=== PATIENT | female | born 1990 | race Caucasian/White ===

== ENCOUNTER → 2016-06-15 | Outpatient (CLI) | payer OTHER ==
[2016-06-15 11:51] LABS: CH 29.4; CHCM 33.9; HDW 2.83; HGB 12.8 gm/dL (11.4-16.0); MCH 28.5 pg (25.0-35.0); MCHC 32.8 g/dL (31.0-37.0); MCV 86.8 fL (80.0-100.0); RBC 4.49 m/uL (3.80-5.40); RDW 13.1 % (11.5-15.5)
[2016-06-15 12:02] LABS: Glucose 91 mg/dL (74-99); Non-African American GFR(MDRD) >60 (>60 ml/min/1.73 sqM)
--- NOTE | 2016-06-15 12:13 | US ---
EXAMINATION TYPE: US OB <= 14 wk fetus DATE OF EXAM: 06/15/2016 11:31 AM COMPARISON: NONE CLINICAL HISTORY: 25-year-old female with O46.91 Bleeding. The patient states spotting last week. Date of LMP: unknown EXAM PERFORMED: Transabdominal scanning. FINDINGS: EXAM MEASUREMENTS: GESTATIONAL AGE / DATING Physician Established: (12 weeks/4 days) EDC: 12/24/2016 Dates by LMP: unknown Dates by First Scan: this is first scan here Dates by Current Scan for: (13 weeks/5 days) SD = 2.74 EDC: 12/16/2016 MATERNAL ANATOMY Uterus: 15.5 x 6.2 x 9.8 cm Right Ovary: not identified on today's scan Left Ovary: not identified on today's scan Post CDS / Adnexa: wnl Presence of free fluid: none GESTATION / SURVEY CRL: 7.5 cm (13 weeks/5 days) Yolk Sac (normal less than 6mm): not seen Heart Rate: 152 bpm Rhythm: Normal IUP: Viable IUP TECHNOLOGIST NOTES: viable IUP , morbidly obese patient. IMPRESSION: 1. Single live intrauterine with established gestational age of 12 weeks 4 days. Current me asurements are larger (13 weeks 5 days) by crown-rump length placing the gestation at 2.74 standard d eviations above the mean. 2. Follow-up can be considered to assess for appropriate interval growth. Otherwise, complete s urvey recommended at 18-20 weeks.
[2016-06-15 12:32] LABS: Hepatitis B Surface Ag Index 0.06
[2016-06-16 07:31] LABS: HIV-1/HIV-2 Ab Screen NONREAC (NON REAC)
== END | disposition home or self-care (01) ==
LOC: RADUSWWP 11:04
PROVIDERS: ATTEND Obstetrics & Gynecology
DX: O46.91 Antepartum hemorrhage, unspecified, first trimester (principal); O26.811 Pregnancy related exhaustion and fatigue, first trimester; Z3A.12 12 weeks gestation of pregnancy
CPT/HCPCS: 36415; 76801; 82565; 82947; 85027; 86762; 86780; 86850; 86900; 86901; 87340; 87389

== ENCOUNTER → 2016-08-04 | Outpatient (CLI) | payer OTHER ==
--- NOTE | 2016-07-19 10:07 | US ---
EXAMINATION TYPE: US OB anatomy transabd DATE OF EXAM: 07/19/2016 8:36 AM COMPARISON: on PACS June 15, 2016 first trimester ultrasound. HISTORY: Anatomy, large for dates. TECHNIQUE: Transabdominal (TA) EXAM MEASUREMENTS: GESTATIONAL AGE / DATING Physician Established: (18 weeks/4 days) EDC: 12/16/2016 Dates by Current Scan: (18 weeks/1 days) EDC: 12/19/2016 SURVEY IUP: Single PLACENTA: Posterior PREVIA: No previa RADHIKA: 14.4 cm Normal CERVICAL LENGTH (transabdominal: norm > 3.0cm): 4.0 cm BIOMETRY PRESENTATION: Breech LIE: Longitudinal BPD: 4.0 cm 18 weeks / 0 days HC: 15.1 cm 18 weeks / 1 days AC: 13.2 cm 18 weeks / 5 days FL: 2.5 cm 17 weeks / 4 days ESTIMATED WEIGHT IN GRAMS: 226.5 grams ESTIMATED WEIGHT IN LBS/OZS: 0 lbs. 8 oz. WEIGHT PERCENTAGE BASED ON ESTABLISHED DATE: 22.7 % HC/AC: 1.1 FL/AC: 18.9 HEART RATE: 146 bpm RHYTHM: Normal ANATOMY SEEN (within normal limits): Midline Falx Cavus Septi Pellucidi Stomach Situs Bladder Three Vessel Cord Longitudinal Spine Transverse Spine Arms (bilateral) Legs (bilateral) ANATOMY SEEN (does not appear within normal limits): ANATOMY NOT SEEN: * Lateral Vent (< 1 cm) cm * Cisterna Magna (< 1.1 cm) cm * Nuchal Fold (< 0.6 cm) cm * Cerebellum (varies with age) cm Choroid Plexus (bilateral) Four Chamber Heart Outflow tracts: LVOT/RVOT Nose / Lips Diaphragm Kidneys (bilateral) Cord Insert MATERNAL WALL MEASUREMENT: 6.0 cm from skin to anterior uterine wall (if exam limited due to body sauceda bitus). TECHNOLOGIST IMPRESSION: Suboptimal exam due to maternal body habitus-- Limited visualization of fet us. Live single IUP measuring 18 weeks 1 day. OB callback appointment is made for two weeks. Exam is noted suboptimal due to maternal large body habitus per technologist. Single live intrauterin e gestation is redemonstrated. A breech presentation to fetus is currently seen. Slightly low-lying p lacenta is noted. There is no ultrasound evidence for placenta previa. Amniotic fluid index is within normal limits. biometry measurements are within normal limits. Detailed anatomical survey is m arkedly suboptimal with incomplete visualization of above structures noted during real-time scanning. Still images saved also show poor visualization of bilateral extremities, spine and 2 views, and 3 v essel cord. IMPRESSION: As above, suboptimal anatomical survey.
--- NOTE | 2016-08-04 12:10 | US ---
EXAMINATION TYPE: US OB Call Back DATE OF EXAM: 08/04/2016 11:35 AM COMPARISON: OB CALL BACK CLINICAL HISTORY: Large for Dates O36.62x0. GESTATIONAL AGE / DATING Dates by Initial Survey Scan: (20 weeks/1 days) EDC: 12/19/2016 HEART RATE: 142 bpm RHYTHM: Normal ANATOMY SEEN (second anatomic survey look): Lateral Vent (< 1 cm):0.7 Cisterna Magna (< 1.1 cm): 0.5CM Cerebellum: 1.9 CM 4 chamber heart Cord insertion 3 vessel cord Femur length 3.5 cm Abdominal circumference 14.8 cm Longitudinal spine Biparietal diameter 4.7 cm Head circumference 17.2 cm ANATOMY STILL NOT SEEN (requiring an additional callback appt): Outflow tracts:? LVOT/RVOT, nose and lips, diaphragm, kidneys MATERNAL WALL MEASUREMENT: 11 cm from skin to anterior uterine wall (if exam limited due to body hab itus). IMPRESSION: Exam is limited by patient body habitus. There is a low-lying placenta. Single viable int rauterine corresponding to ultrasound age 20 weeks 4 days with estimated date of delivery 14 December 2016
== END | disposition home or self-care (01) ==
LOC: RADUSWWP 07-19 07:36
PROVIDERS: ATTEND Obstetrics & Gynecology
DX: O36.62X0 Maternal care for excessive fetal growth, second trimester, not applicable or unspecified (principal); Z3A.18 18 weeks gestation of pregnancy
CPT/HCPCS: 76811

== ENCOUNTER → 2016-09-21 | Outpatient (CLI) | payer OTHER ==
[2016-09-21 15:10] LABS: CH 29.7; CHCM 33.4; HCT 35.4 % (34.0-46.0); HDW 3.18; HGB 11.4 gm/dL (11.4-16.0); MCH 28.8 pg (25.0-35.0); MCHC 32.3 g/dL (31.0-37.0); MCV 89.4 fL (80.0-100.0); Mean Platelet Volume 6.7; RBC 3.96 m/uL (3.80-5.40); RDW 13.4 % (11.5-15.5); WBC 9.1 k/uL (3.8-10.6)
== END | disposition home or self-care (01) ==
LOC: LABWHC1 13:31
PROVIDERS: ATTEND Obstetrics & Gynecology
DX: Z34.82 Encounter for supervision of other normal pregnancy, second trimester (principal)
CPT/HCPCS: 36415; 82950; 85027

== ENCOUNTER 2016-10-01 11:49 | Outpatient (CLI) | payer OTHER ==
[2016-10-01 12:31] VITALS: BP 119/68; PULSE 99; RESP 18; TEMP 98
--- NOTE | 2016-10-02 06:23 | P.MSEPDOC ---
Presenting Problems - Arrival Data Date of Arrival on Unit: 10/01/16 Time of Arrival on Unit: 11:50 Mode of Transport: Wheelchair - Complaint OB-Reason for Admission/Chief Complaint: Acute Nausea/Vomiting Medical History - Information : 2 Para: 0 Term: 0 : 0 Abortions: Spontaneous or Elective: 0 Number of Living Children: 1 - Gestational Age Expected Date of Delivery: 12/16/16 Gestational Age by GENEVA (wks/days): 29 Weeks and 2 Days - History Complications: Prior Review of Systems - Review of Systems Constitutional: No problems Breast: No problems ENT: No problems Cardiovascular: No problems Respiratory: No problems Gastrointestinal: No problems Genitourinary: No problems Musculoskeletal: No problems Neurological: No problems Skin: No problems Vital Signs - Temperature Temperature: 98.0 F Temperature Source: Oral - Pulse Right Brachial Pulse Rate: 99 Pulse Assessment Method: Automatic Cuff - Respirations Respiratory Rate: 18 Oxygen Delivery Method: Room Air - Blood Pressure Right Arm Blood Pressure: 119/68 Blood Pressure Mean: 85 Blood Pressure Source: Automatic Cuff Medical Screen Scoring (Pre) - Maternal Vital Signs Maternal Temperature: N/A Signs of Preeclampsia: N/A Maternal Respirations: N/A - Maternal Trauma Maternal Trauma: N/A - Assessment Baseline FHR: 140 Heart Rate - NICHD Category: Category I (Normal) = 0 NST: Reactive Position: N/A - Total Score Total Score (Pre): 0 - Level of Risk Level of Risk: Low (0-5) Physician Notification (Pre) - Physician Notified Physician Notified Date: 10/01/16 Physician Notified Time: 12:30 Physician/Practitioner Notifed:: charles Spoke With: charles Ventura Order Received: Yes Disposition - Disposition OB Disposition: Discharge to home Discharge Date: 10/01/16 Discharge Time: 13:23 I agree with the RN Medical Screening Exam: Yes Risk & Benefit of care provided described in d/c instruction: Yes Diagnosis: 29 WEEKS GESTATION OF
== END 2016-10-01 13:28 | disposition home or self-care (01) ==
LOC: FBPOP 11:49
PROVIDERS: ATTEND Obstetrics & Gynecology
DX: O21.2 Late vomiting of pregnancy (principal); Z3A.29 29 weeks gestation of pregnancy
CPT/HCPCS: 59025; G0463; 99213

== ENCOUNTER 2016-10-20 16:28 | Outpatient (CLI) | payer OTHER ==
[2016-10-20 17:43] VITALS: PULSE 87; RESP 18; TEMP 98.5
[2016-10-20 17:50] LABS: Appearance,Urine Cloudy (Clear); Bacteria,Urine Rare /hpf; Bilirubin,Urine Negative (Negative); Glucose,Urine (UA) Negative (Negative); Ketones,Urine 1+ (Negative); Leukocyte Esterase,Urine Negative (Negative); Mucus,Urine Occasional /hpf; Nitrite,Urine Negative (Negative); PH, Urine 6.5 (5.0-8.0); Particle Count 7559; Protein,Urine 1+ (Negative); RBC,Urine >182 /hpf (0-5); Specific Gravity,Urine 1.021 (1.001-1.035); Squamous Epithelial Cell,Urine 3 /hpf (0-4); UA Billing (MACRO vs. MICRO) MICRO; Urobilinogen,Urine <2.0 mg/dL (<2.0)
[2016-10-20 19:09] VITALS: BP 123/69
--- NOTE | 2016-10-21 08:06 | P.MSEPDOC ---
Presenting Problems - Arrival Data Date of Arrival on Unit: 10/20/16 Time of Arrival on Unit: 16:25 Mode of Transport: Wheelchair - Complaint OB-Reason for Admission/Chief Complaint: Pain Comment: left flank Medical History - Information : 2 Para: 0 Term: 0 : 0 Abortions: Spontaneous or Elective: 0 Number of Living Children: 1 - Gestational Age Expected Date of Delivery: 12/16/16 Gestational Age by GENEVA (wks/days): 32 Weeks and 0 Days - History Complications: Other Comment: left flank pain onset 1330 troday. emesis x 1, at 1500 Review of Systems - Review of Systems Constitutional: No problems Breast: No problems ENT: No problems Cardiovascular: No problems Respiratory: No problems Gastrointestinal: No problems Genitourinary: No problems Musculoskeletal: No problems Neurological: No problems Skin: No problems Comment: left flank pain radiating to left side Vital Signs - Temperature Temperature: 98.5 F Temperature Source: Oral - Pulse Right Brachial Pulse Rate: 87 Pulse Assessment Method: Automatic Cuff - Respirations Respiratory Rate: 18 Oxygen Delivery Method: Room Air O2 Sat by Pulse Oximetry: 100 - Blood Pressure Right Arm Blood Pressure: 123/69 Blood Pressure Mean: 87 Blood Pressure Source: Automatic Cuff Medical Screen Scoring (Pre) - Cervical Exam Dilation: 0 cm = 0 Effacement: Exam Deferred Membranes: Intact - Uterine Contractions Frequency: N/A Duration: N/A Intensity: N/A - Maternal Vital Signs Maternal Temperature: N/A Maternal Blood Pressure: N/A Signs of Preeclampsia: N/A Maternal Respirations: N/A - Maternal Trauma Maternal Trauma: N/A - Assessment Position: N/A Station: N/A - Total Score Total Score (Pre): 0 - Level of Risk Level of Risk: Low (0-5) Physician Notification (Pre) - Physician Notified Physician/Practitioner Notifed:: yes Spoke With: avila Ventura Order Received: Yes - Notification Comment Comment: disch. home to strain urine, push fluids. call dr if worsening s/sx Medical Screen Scoring (Post) - Cervical Exam Dilation: 0 cm = 0 Effacement: More than 50% = 2 Membranes: Intact - Uterine Contractions Frequency: N/A Duration: N/A Intensity: N/A - Maternal Vital Signs Maternal Temperature: N/A Maternal Blood Pressure: N/A Signs of Preeclampsia: N/A Maternal Respirations: N/A - Maternal Trauma Maternal Trauma: N/A - Assessment Heart Rate: 145 Heart Rate - NICHD Category: Category I (Normal) = 0 Position: N/A Station: N/A - Total Score Total Score (Post): 2 - Post Treatment Level of Risk Post Treatment Level of Risk: Low (0-5) Physician Notification (Post) - Physician Notified Physician Notified Date: 10/20/16 Physician Notified Time: 18:10 Physician/Practitioner Notified:: yes Spoke With: avila Ventura Order Received: Yes - Notification Comment Comment: disch home. Disposition - Disposition OB Disposition: Discharge to home Discharge Date: 10/20/16 Discharge Time: 18:30 I agree with the RN Medical Screening Exam: Yes Risk & Benefit of care provided described in d/c instruction: Yes Diagnosis: CALCULUS OF KIDNEY
== END 2016-10-20 18:30 | disposition home or self-care (01) ==
LOC: FBPOP 16:28
PROVIDERS: ATTEND Obstetrics & Gynecology
DX: O99.89 Other specified diseases and conditions complicating pregnancy, childbirth and the puerperium (principal); N20.0 Calculus of kidney; Z3A.32 32 weeks gestation of pregnancy
CPT/HCPCS: 59025; 81001; G0463; 99213

== ENCOUNTER 2016-10-23 22:30 | Observation (INO) | payer OTHER ==
[2016-10-23] MEDS ORDERED: MORPHINE SULFATE 4 MG/ML SYRINGE IV STA (23:20)
--- NOTE | 2016-10-23 23:35 | ED ---
Abdominal Pain HPI - General Chief Complaint: Abdominal Pain Stated Complaint: Kidney Stones Time Seen by Provider: 10/23/16 23:05 Source: patient Mode of arrival: ambulatory Limitations: no limitations - History of Present Illness Initial Comments: This patient is a 25-year-old woman who presents to be evaluated for left flank pain. The patient states that she initially had the pain 3 days ago, and she came to the hospital and was seen by her marine equipment research engineer at the OB triage area. They felt that she was having a kidney stone. The patient did have improvement of her pain and she went home. This evening she had a recurrence of pain is located in the left flank, is sharp, constant, moderately severe. She has not noticed any worsening or relieving factors. MD Complaint: flank pain (left) -: hour(s) Location: L flank Severity: moderate Quality: sharp Consistency: constant Improves With: nothing Worsens With: nothing Associated Symptoms: nausea, constipation - Related Data Home Medications Medication Instructions Recorded Confirmed Ukn-Qipy-Nfbfg Acid 1 cap PO DAILY 10/23/16 10/23/16 [-U Capsule (formulary)] Allergies Allergy/AdvReac Type Severity Reaction Status Date / Time No Known Allergies Allergy Verified 10/23/16 23:15 Review of Systems ROS Statement: Those systems with pertinent positive or pertinent negative responses have been documented in the HPI. ROS Other: All systems not noted in ROS Statement are negative. Constitutional: Denies: fever, chills Respiratory: Denies: cough, dyspnea Cardiovascular: Denies: chest pain, palpitations, edema, syncope Gastrointestinal: Reports: as per HPI, abdominal pain, nausea. Denies: vomiting , diarrhea, constipation, hematemesis Genitourinary: Reports: as per HPI. Denies: urgency, dysuria, frequency, hematuria, discharge Skin: Denies: rash Neurological: Denies: headache, weakness Past Medical History Past Medical History: GERD/Reflux Additional Past Medical History / Comment(s): Obstetric history: She has had care with me since 8 weeks gestation. EDC by 9 week US. B+ abs neg, RUb Imm, RPR NR, Hep B neg, HIV NR. normal 1hr GTT. Normal anatomy US. GBS +. Kidney stones History of Any Multi-Drug Resistant Organisms: None Reported Past Surgical History: Adenoidectomy, Tonsillectomy Past Anesthesia/Blood Transfusion Reactions: No Reported Reaction Past Psychological History: Anxiety Smoking Status: Never smoker - Past Family History Father Family Medical History: Diabetes Mellitus, Hypertension General Exam Limitations: no limitations General appearance: alert, in distress Neck exam: Present: normal inspection, full ROM Respiratory exam: Present: normal lung sounds bilaterally. Absent: respiratory distress, wheezes, rales, rhonchi, stridor, chest wall tenderness Cardiovascular Exam: Present: regular rate, normal rhythm, normal heart sounds. Absent: systolic murmur, diastolic murmur, rubs, gallop GI/Abdominal exam: Present: soft. Absent: distended, tenderness, guarding, rebound, mass, pulsatile mass, hernia Extremities exam: Present: normal inspection, normal capillary refill. Absent: pedal edema, calf tenderness Back exam: Present: CVA tenderness (L). Absent: CVA tenderness (R) Neurological exam: Present: alert, normal gait, motor sensory deficit Skin exam: Present: warm, dry, intact, normal color. Absent: rash Course Vital Signs 10/23/16 22:41 Temperature 97.4 F L Pulse Rate 85 Respiratory 18 Rate Blood Pressure 124/59 O2 Sat by Pulse 96 Oximetry Medical Decision Making - Lab Data Result diagrams: 10/23/16 23:30 10/23/16 23:30 Lab Results 10/23/16 10/23/16 10/23/16 Range/Units 22:58 23:30 23:30 WBC 12.5 H (3.8-10.6) k/uL RBC 4.18 (3.80-5.40) m/uL Hgb 11.9 (11.4-16.0) gm/dL Hct 36.7 (34.0-46.0) % MCV 87.8 (80.0-100.0) fL MCH 28.5 (25.0-35.0) pg MCHC 32.4 (31.0-37.0) g/dL RDW 13.6 (11.5-15.5) % Plt Count 301 (150-450) k/uL Neutrophils % 77 % Lymphocytes % 18 % Monocytes % 4 % Eosinophils % 0 % Basophils % 0 % Neutrophils # 9.6 H (1.3-7.7) k/uL Lymphocytes # 2.3 (1.0-4.8) k/uL Monocytes # 0.5 (0-1.0) k/uL Eosinophils # 0.0 (0-0.7) k/uL Basophils # 0.0 (0-0.2) k/uL Sodium 140 (137-145) mmol/L Potassium 3.8 (3.5-5.1) mmol/L Chloride 108 H (98-107) mmol/L Carbon Dioxide 20 L (22-30) mmol/L Anion Gap 12 mmol/L BUN 9 (7-17) mg/dL Creatinine 0.70 (0.52-1.04) mg/dL Est GFR (MDRD) Af Amer >60 (>60 ml/min/1.73 sqM) Est GFR (MDRD) Non-Af >60 (>60 ml/min/1.73 sqM) Glucose 81 (74-99) mg/dL Uric Acid 6.0 (3.7-7.4) mg/dL Calcium 9.2 (8.4-10.2) mg/dL Total Bilirubin 0.4 (0.2-1.3) mg/dL AST 19 (14-36) U/L ALT 32 (9-52) U/L Alkaline Phosphatase 125 (38-126) U/L Total Protein 6.3 (6.3-8.2) g/dL Albumin 3.4 L (3.5-5.0) g/dL Amylase 49 (30-110) U/L Lipase 36 (23-300) U/L Urine Color Yellow Urine Appearance Cloudy H (Clear) Urine pH 6.5 (5.0-8.0) Ur Specific [place] 1.049 H (1.001-1.035) Urine Protein 2+ H (Negative) Urine Glucose (UA) Negative (Negative) Urine Ketones 4+ H (Negative) Urine Blood Large H (Negative) Urine Nitrite Negative (Negative) Urine Bilirubin 1+ H (Negative) Urine Urobilinogen 3.0 (<2.0) mg/dL Ur Leukocyte Esterase Negative (Negative) Urine RBC >182 H (0-5) /hpf Urine WBC 7 H (0-5) /hpf Ur Squamous Epith Cells 4 (0-4) /hpf Urine Bacteria Rare H (None) /hpf Urine Mucus Few H (None) /hpf Disposition Clinical Impression: Flank pain Disposition: ADMITTED IP TO THIS HOSP Condition: Fair Referrals: None,Stated [Primary Care Provider] - 1-2 days
[2016-10-24 00:01] LABS: Basophils % (A) 0 %; CH 29.4; CHCM 33.6; Eosinophils % (A) 0 %; HCT 36.7 % (34.0-46.0); HDW 3.28; HGB 11.9 gm/dL (11.4-16.0); Luc # (Auto) 0.16; Luc % (Auto) 1; Lymphocytes # (A) 2.3 k/uL (1.0-4.8); Lymphocytes % (A) 18 %; MCH 28.5 pg (25.0-35.0); MCHC 32.4 g/dL (31.0-37.0); MCV 87.8 fL (80.0-100.0); Mean Platelet Volume 6.8; Monocytes # (A) 0.5 k/uL (0-1.0); Monocytes % (A) 4 %; Neutrophils # (A) 9.6 k/uL (1.3-7.7); Neutrophils % (A) 77 %; RBC 4.18 m/uL (3.80-5.40); RDW 13.6 % (11.5-15.5); WBC 12.5 k/uL (3.8-10.6); WBC (Perox) 13.02
[2016-10-24 00:07] LABS: Appearance,Urine Cloudy (Clear); Bacteria,Urine Rare /hpf; Bilirubin,Urine 1+ (Negative); Glucose,Urine (UA) Negative (Negative); Ketones,Urine 4+ (Negative); Leukocyte Esterase,Urine Negative (Negative); Mucus,Urine Few /hpf; Nitrite,Urine Negative (Negative); PH, Urine 6.5 (5.0-8.0); Particle Count 8776; Protein,Urine 2+ (Negative); RBC,Urine >182 /hpf (0-5); Specific Gravity,Urine 1.049 (1.001-1.035); Squamous Epithelial Cell,Urine 4 /hpf (0-4); UA Billing (MACRO vs. MICRO) MICRO; WBC,Urine 7 /hpf (0-5)
[2016-10-24 00:21] LABS: ALT 32 U/L (9-52); AST 19 U/L (14-36); Alkaline Phosphatase 125 U/L (38-126); Amylase 49 U/L (30-110); Anion Gap 12 mmol/L; Blood Urea Nitrogen 9 mg/dL (7-17); Calcium 9.2 mg/dL (8.4-10.2); Carbon Dioxide 20 mmol/L (22-30); Chloride 108 mmol/L (98-107); Glucose 81 mg/dL (74-99); Non-African American GFR(MDRD) >60 (>60 ml/min/1.73 sqM); Potassium 3.8 mmol/L (3.5-5.1); Sodium 140 mmol/L (137-145); Total Bilirubin 0.4 mg/dL (0.2-1.3); Total Protein 6.3 g/dL (6.3-8.2)
[2016-10-24] MEDS ORDERED: ONDANSETRON 4 MG/2 ML VIAL IVP PRN (01:56)
[2016-10-24] MEDS ORDERED: HYDROmorphone 1 MG/ML 1 ML SYRINGE IVP PRN (01:59)
[2016-10-24] MEDS ORDERED: LACTATED RINGERS 1,000 ML IV SCH (02:00)
[2016-10-24 02:20] VITALS: BMI 54.5
[2016-10-24] MEDS: LACTATED RINGERS 1,000 ML IV SCH ×2 (02:37→06:55)
[2016-10-24 07:48] VITALS: BP 120/62; PULSE 85; RESP 18; TEMP 97.7
--- NOTE | 2016-10-24 12:31 | P.HPOB ---
History of Present Illness H&P Date: 10/24/16 Chief Complaint: kidney stone 25 year old presents at 29 weeks 5 days with known kidney stone pain. She has blood in her urine and a history of kidney stones. At home she was unable to keep anything down. Review of Systems All systems: negative Constitutional: Denies chills, Denies fever Eyes: denies blurred vision, denies pain Ears, nose, mouth and throat: Denies headache, Denies sore throat Cardiovascular: Denies chest pain, Denies shortness of breath Respiratory: Denies cough Gastrointestinal: Denies abdominal pain, Denies diarrhea, Denies nausea, Denies vomiting Genitourinary: Denies dysuria, Denies hematuria Musculoskeletal: Denies myalgias Integumentary: Denies pruritus, Denies rash Neurological: Denies numbness, Denies weakness Psychiatric: Denies anxiety, Denies depression Endocrine: Denies fatigue, Denies weight change Past Medical History Past Medical History: GERD/Reflux Additional Past Medical History / Comment(s): Obstetric history: She has had one . THis is her second and She has had care with me. EDC by 9 week US. B+ abs neg, RUb Imm, RPR NR, Hep B neg, HIV NR. normal 1hr GTT. Normal anatomy US. Kidney stones History of Any Multi-Drug Resistant Organisms: None Reported Past Surgical History: Adenoidectomy, Tonsillectomy Past Anesthesia/Blood Transfusion Reactions: No Reported Reaction Past Psychological History: Anxiety Smoking Status: Never smoker - Past Family History Father Family Medical History: Diabetes Mellitus, Hypertension Medications and Allergies Home Medications Medication Instructions Recorded Confirmed Type Hjs-Tqaw-Tphzm Acid 1 cap PO DAILY 10/23/16 10/23/16 History [-U Capsule (formulary)] Allergies Allergy/AdvReac Type Severity Reaction Status Date / Time No Known Allergies Allergy Verified 10/24/16 01:36 Exam Osteopathic Statement: *. No significant issues noted on an osteopathic structural exam other than those noted in the History and Physical/Consult. - Vital Signs Vital signs: Vital Signs Temp Pulse Pulse Pulse Resp BP BP 10/24/16 07:47 97.7 F 85 18 120/62 10/24/16 01:54 96.9 F L 83 15 120/72 10/24/16 00:45 70 16 113/62 10/23/16 22:41 97.4 F L 85 18 124/59 Pulse Ox 10/24/16 07:47 10/24/16 01:54 99 10/24/16 00:45 10/23/16 22:41 96 Intake and Output 10/23/16 10/24/16 10/24/16 22:59 06:59 14:59 Intake Total 2000 Output Total 400 400 Balance 1600 -400 Intake: IV 2000 Lactated Ringers 1,000 ml 1000 @ 250 mls/hr IV .Q4H CH[facility] Rx#:[id number] Lactated Ringers 1,000 ml 1000 @ 999 mls/hr IV .Q1H1M [facility] Rx#:[id number] Output: Urine 400 400 Other: Voiding Method Toilet Weight 135.171 kg 135.171 kg Heart: Regular rate and rhythm Lungs: Clear to auscultation bilaterally Abdomen: Soft, nontender Extremities: Negative Homans sign Results Result Diagrams: 10/23/16 23:30 10/23/16 23:30 Abnormal Lab Results - Last 24 Hours (Table) 10/23/16 10/23/16 10/23/16 Range/Units 22:58 23:30 23:30 WBC 12.5 H (3.8-10.6) k/uL Neutrophils # 9.6 H (1.3-7.7) k/uL Chloride 108 H (98-107) mmol/L Carbon Dioxide 20 L (22-30) mmol/L Albumin 3.4 L (3.5-5.0) g/dL Urine Appearance Cloudy H (Clear) Ur Specific [place] 1.049 H (1.001-1.035) Urine Protein 2+ H (Negative) Urine Ketones 4+ H (Negative) Urine Blood Large H (Negative) Urine Bilirubin 1+ H (Negative) Urine RBC >182 H (0-5) /hpf Urine WBC 7 H (0-5) /hpf Urine Bacteria Rare H (None) /hpf Urine Mucus Few H (None) /hpf Microbiology - Last 24 Hours (Table) 10/23/16 22:58 Urine Culture - Preliminary Urine,Clean Catch Assessment and Plan (1) Renal calculus Status: Acute Plan: 1. IV fluids 2. Strain urine 3. Pain control
--- NOTE | 2016-10-24 12:33 | P.DS ---
Providers Date of admission: 10/24/16 01:25 Expected date of discharge: 10/24/16 Attending physician: Evelia Turner Primary care physician: Stated None - Discharge Diagnosis(es) (1) Renal calculus Current Visit: Yes Status: Acute Hospital Course: Patient was admitted at 29 weeks and 5 days gestation for a kidney stone and unable to keep any food down. She had IV fluids and pain control. She did pass a kidney stone and was sent to pathology. She is feeling much better and will be discharged home. Patient Condition at Discharge: Fair Plan - Discharge Summary New Discharge Prescriptions: No Action Ynz-Gwlp-Dvors Acid [-U Capsule (formulary)] 1 cap PO DAILY Discharge Medication List Gdp-Irpp-Nrcwz Acid [-U Capsule (formulary)] 1 cap PO DAILY [History] Follow up Appointment(s)/Referral(s): None,Stated [Primary Care Provider] - 1-2 days Kiara Oliva DO [Doctor of Osteopathic Medicine] - 1 Week Discharge Disposition: HOME SELF-CARE
== END 2016-10-24 13:30 | disposition home or self-care (01) ==
LOC: EC 22:30 → 4FBP 10-24 01:25
PROVIDERS: ADMIT Obstetrics & Gynecology; ATTEND Obstetrics & Gynecology
DX: O26.833 Pregnancy related renal disease, third trimester (principal); O99.343 Other mental disorders complicating pregnancy, third trimester; O99.613 Diseases of the digestive system complicating pregnancy, third trimester; O99.820 Streptococcus B carrier state complicating pregnancy; N20.0 Calculus of kidney; Z3A.29 29 weeks gestation of pregnancy; K59.00 Constipation, unspecified; K21.9 Gastro-esophageal reflux disease without esophagitis; F41.9 Anxiety disorder, unspecified; Z83.3 Family history of diabetes mellitus; Z82.49 Family history of ischemic heart disease and other diseases of the circulatory system
CPT/HCPCS: 96375; 96374; 99284; 36415; 80053; 82150; 83690; 84550; 85025; 81001; 88300; 87086; G0378; J2270; J2405; J1170

== ENCOUNTER 2016-10-24 01:25 | Observation (INO) | payer OTHER ==
[2016-10-24] MEDS ORDERED: HYDROmorphone 1 MG/ML 1 ML SYRINGE IVP PRN (01:38)
[2016-10-24] MEDS ORDERED: ONDANSETRON 4 MG/2 ML VIAL IVP PRN (01:38)
[2016-10-24] MEDS ORDERED: LACTATED RINGERS 1,000 ML IV SCH ×2 (01:45)
== END 2016-10-24 01:52 | disposition home or self-care (01) ==
LOC: 4FBP 01:25
PROVIDERS: ADMIT Obstetrics & Gynecology; ATTEND Obstetrics & Gynecology
DX: Z53.9 Procedure and treatment not carried out, unspecified reason (principal)
CPT/HCPCS: G0379; G0378

== ENCOUNTER 2016-12-09 09:39 | Inpatient (IN) | payer OTHER ==
[2016-12-08 08:24] VITALS: BMI 54.8
[2016-12-09] MEDS ORDERED: CITRIC ACID-SODIUM CITRATE 15 ML CUP PO ONE (09:52)
[2016-12-09] MEDS ORDERED: LACTATED RINGERS 1,000 ML IV ONE (09:52)
[2016-12-09] MEDS ORDERED: ceFAZolin 3 GM in SODIUM CHLORIDE 0.9% 100 ML IVPB ONE (09:52)
[2016-12-09 10:06] LABS: Basophils % (A) 0 %; CH 27.3; CHCM 32.4; Eosinophils # (A) 0.1 k/uL (0-0.7); Eosinophils % (A) 1 %; HCT 34.8 % (34.0-46.0); HDW 3.61; HGB 11.1 gm/dL (11.4-16.0); Hypochromasia Slight; Luc # (Auto) 0.11; Luc % (Auto) 1; Lymphocytes # (A) 1.8 k/uL (1.0-4.8); Lymphocytes % (A) 18 %; MCV 84.5 fL (80.0-100.0); Mean Platelet Volume 7.5; Monocytes # (A) 0.4 k/uL (0-1.0); Monocytes % (A) 4 %; Neutrophils # (A) 7.3 k/uL (1.3-7.7); Neutrophils % (A) 75 %; Poikilocytosis Slight; RBC 4.12 m/uL (3.80-5.40); RDW 14.1 % (11.5-15.5); WBC 9.7 k/uL (3.8-10.6); WBC (Perox) 9.78
--- NOTE | 2016-12-09 11:04 | P.HPOB ---
History of Present Illness H&P Date: 12/09/16 Chief Complaint: repeat 26 year old presents at 39 weeks for repeat low transverse . Review of Systems All systems: negative Constitutional: Denies chills, Denies fever Eyes: denies blurred vision, denies pain Ears, nose, mouth and throat: Denies headache, Denies sore throat Cardiovascular: Denies chest pain, Denies shortness of breath Respiratory: Denies cough Gastrointestinal: Denies abdominal pain, Denies diarrhea, Denies nausea, Denies vomiting Genitourinary: Denies dysuria, Denies hematuria Musculoskeletal: Denies myalgias Integumentary: Denies pruritus, Denies rash Neurological: Denies numbness, Denies weakness Psychiatric: Denies anxiety, Denies depression Endocrine: Denies fatigue, Denies weight change Past Medical History Past Medical History: GERD/Reflux Additional Past Medical History / Comment(s): hx Kidney stones. OB history: first she had a . This is her second and she has had care with me. B+, abs neg, Rub Imm, Treponemal ab neg, Hep B neg, HIV NR. History of Any Multi-Drug Resistant Organisms: None Reported Past Surgical History: Adenoidectomy, Section, Tonsillectomy Past Anesthesia/Blood Transfusion Reactions: No Reported Reaction Past Psychological History: Anxiety Smoking Status: Never smoker Past Alcohol Use History: None Reported Past Drug Use History: None Reported - Past Family History Father Family Medical History: Diabetes Mellitus, Hypertension Medications and Allergies Home Medications Medication Instructions Recorded Confirmed Type Gir-Idwv-Ptjnt Acid 1 cap PO DAILY 10/23/16 12/09/16 History [-U Capsule (formulary)] Allergies Allergy/AdvReac Type Severity Reaction Status Date / Time No Known Allergies Allergy Verified 12/09/16 10:35 Exam Osteopathic Statement: *. No significant issues noted on an osteopathic structural exam other than those noted in the History and Physical/Consult. - Vital Signs Vital signs: Vital Signs Temp Pulse Resp BP Pulse Ox 12/09/16 09:46 98.6 F 82 17 131/82 97 Intake and Output 12/08/16 12/09/16 12/09/16 22:59 06:59 14:59 Other: Weight 136.078 kg Patient Weight 12/10/16 06:59 Weight 136.078 kg HEart: RRR Lungs: CTAB Abdomen: soft, nontender Extremeties: neg tressa's Results Result Diagrams: 12/09/16 09:50 Abnormal Lab Results - Last 24 Hours (Table) 12/09/16 Range/Units 09:50 Hgb 11.1 L (11.4-16.0) gm/dL Assessment and Plan (1) Previous section Status: Acute Plan: 1. repeat low transverse
[2016-12-09] MEDS ORDERED: ONDANSETRON 4 MG/2 ML VIAL ONE (11:52)
[2016-12-09] MEDS ORDERED: NALBUPHINE 10 MG/ML AMPUL ONE (11:52)
[2016-12-09] MEDS ORDERED: KETOROLAC 30 MG/ML 1 ML VIAL ONE (11:52)
[2016-12-09] MEDS ORDERED: OXYTOCIN 10 UNIT/ML 1 ML VIAL ONE (11:52)
[2016-12-09] MEDS ORDERED: MORPHINE SULFATE (PF) 0.3 MG/0.3 ML SYR ONE (11:52)
[2016-12-09] MEDS ORDERED: LANOLIN CREAM 5 GM TUBE TOPICAL PRN (12:37)
[2016-12-09] MEDS ORDERED: NALOXONE 0.4 MG/ML 1 ML VIAL IV PRN ×2 (12:37→13:54)
[2016-12-09] MEDS ORDERED: Acetaminophen-Codeine 300-30mg TAB PO PRN ×2 (12:37)
[2016-12-09] MEDS ORDERED: diphenhydrAMINE 25 MG CAP PO PRN (12:37)
[2016-12-09] MEDS ORDERED: METOCLOPRAMIDE 5 MG/ML 2 ML VIAL IVP PRN (12:37)
[2016-12-09] MEDS ORDERED: ONDANSETRON 4 MG/2 ML VIAL IVP PRN (12:37)
[2016-12-09] MEDS ORDERED: ZOLPIDEM 5 MG TAB PO PRN (12:37)
[2016-12-09] MEDS ORDERED: diphenhydrAMINE 50 MG/ML 1 ML VIAL IVP PRN ×2 (12:37)
[2016-12-09] MEDS ORDERED: ACETAMINOPHEN TAB 325 MG TAB PO PRN (12:37)
[2016-12-09] MEDS ORDERED: diphenhydrAMINE 50 MG CAP PO PRN (12:37)
--- NOTE | 2016-12-09 12:43 | P.OP ---
Date of Procedure: 12/09/16 Preoperative Diagnosis: 1. at 39 weeks 2. previous Postoperative Diagnosis: 1. at 39 weeks 2. previous Procedure(s) Performed: Repeat low transverse Implants: Anesthesia: spinal Surgeon: Kiara Oliva Hem Marker #1: Evelia Turner Estimated Blood Loss (ml): 600 IV fluids (ml): 500 Urine output (ml): 150 Pathology: other (placenta) Condition: stable Disposition: floor Indications for Procedure: Operative Findings: viable male, 9,9, weight 9#10oz Description of Procedure: Patient was taken to the operating room where spinal anesthesia was found be adequate. She was prepped and draped in normal sterile fashion in dorsal supine position with a leftward tilt. Pfannenstiel skin incision was made the scalpel and carried through to the underlying layer of fascia with the scalpel. Fascia was incised in midline and carried bilaterally with the Wolf scissors. The superior aspect of the fascial incision was grasped with [place] clamps elevated and the underlying rectus muscles dissected off with the Wolf's. Attention was then turned to inferior aspect of same incision which in a similar fashion was grasped tented up and the underlying rectus muscles dissected off with the Wolf's. The rectus muscles were the midline and the peritoneum was identified tented up and entered sharply with the scalpel. The incision was extended superiorly and inferiorly with good visualization of the bladder. The bladder blade was inserted and the vesicouterine peritoneum was incised the [place]zen[place]ums then carried bilaterally and bladder flap created digitally. A low transverse incision was then made on the uterus with the scalpel. This was carried bilaterally and digital manner. 's head delivered atraumatically, nose and mouth bulb suctioned, cord clamped and cut, infant handed off to waiting nurses. Apgars 9,9, weight 9 lbs. 10 oz. Placenta delivered manually, intact with three-vessel cord. The uterus is exteriorized and cleared of all clots and debris. The uterine incision was closed with 0 Vicryl in a running locked fashion. Second layer of the same sutures used in imbricating fashion to obtain excellent hemostasis. Both ovaries and tubes appeared normal. The uterus was placed back into the abdomen. The peritoneum was reapproximated using 2-0 Vicryl in a running fashion. The muscles were reapproximated using 2-0 Vicryl in interrupted fashion. The fascia was reapproximated using 0 Vicryl in a running fashion. The subcutaneous tissues closed with 3-0 Vicryl running fashion. The skin was closed oumar. Patient tolerated the procedure well, sponge and instrument counts were correct times 2 and she was taken to the recovery room in stable condition.
[2016-12-09] MEDS ORDERED: OXYTOCIN 20 UNITS/1000 ML NS 1,000 ML IV SCH (12:45)
[2016-12-09] MEDS: LACTATED RINGERS 1,000 ML IV SCH ×4 (13:31→23:06)
[2016-12-09] MEDS ORDERED: MORPHINE SULFATE 4 MG/ML SYRINGE IVP PRN (13:54)
[2016-12-09] MEDS ORDERED: KETOROLAC 30 MG/ML 1 ML VIAL IVP PRN (13:54)
[2016-12-09] MEDS ORDERED: NALBUPHINE 10 MG/ML AMPUL IV PRN (13:54)
[2016-12-09] MEDS: SENNOSIDES-DOCUSATE SODIUM 1 EACH TAB PO SCH (20:05)
[2016-12-09] MEDS: KETOROLAC 30 MG/ML 1 ML VIAL IVP SCH (23:05)
[2016-12-10 05:36] LABS: Basophils % (A) 0 %; CH 27.2; CHCM 31.9; Eosinophils # (A) 0.2 k/uL (0-0.7); Eosinophils % (A) 2 %; HCT 31.7 % (34.0-46.0); HDW 3.56; HGB 9.8 gm/dL (11.4-16.0); Hypochromasia Moderate; Luc # (Auto) 0.14; Luc % (Auto) 2; Lymphocytes # (A) 1.8 k/uL (1.0-4.8); Lymphocytes % (A) 21 %; MCH 26.5 pg (25.0-35.0); MCHC 30.9 g/dL (31.0-37.0); MCV 85.6 fL (80.0-100.0); Mean Platelet Volume 7.5; Monocytes # (A) 0.4 k/uL (0-1.0); Monocytes % (A) 5 %; Neutrophils # (A) 6.3 k/uL (1.3-7.7); Neutrophils % (A) 71 %; Poikilocytosis Slight; RBC 3.71 m/uL (3.80-5.40); WBC 8.8 k/uL (3.8-10.6); WBC (Perox) 8.79
[2016-12-10] MEDS: KETOROLAC 30 MG/ML 1 ML VIAL IVP SCH ×4 (06:15→19:17)
[2016-12-10] MEDS: LACTATED RINGERS 1,000 ML IV SCH ×2 (06:24)
[2016-12-10] MEDS: SENNOSIDES-DOCUSATE SODIUM 1 EACH TAB PO SCH ×2 (07:36→20:09)
--- NOTE | 2016-12-10 10:19 | P.PNOBGPC ---
Subjective - Subjective Principal diagnosis: Status post repeat low transverse POD#1 Interval history: Pt seen and examined. Doing well and pain controlled. tolerating regular diet. Denies nausea, vomiting, chest pain, shortness of breath or calf pain. Patient reports: Reports appetite normal, Reports voiding normally, Reports pain well controlled, Reports ambulating normally Objective - Vital Signs Latest vital signs: Vital Signs Temp Pulse Resp BP Pulse Ox 12/10/16 07:43 97.8 F 85 17 130/86 98 12/10/16 03:57 97.8 F 81 16 127/76 99 12/10/16 02:00 97.9 F 88 16 128/74 99 12/10/16 00:00 98.0 F 72 16 108/68 97 12/09/16 22:00 98.5 F 74 18 105/66 97 12/09/16 20:00 97.8 F 81 18 122/76 99 12/09/16 16:00 97.9 F 71 18 136/74 97 12/09/16 14:54 97 12/09/16 14:41 97.2 F L 83 16 117/65 97 12/09/16 14:11 65 17 123/61 12/09/16 13:42 98 12/09/16 13:41 73 17 110/64 12/09/16 13:26 72 19 110/59 12/09/16 13:11 63 18 102/52 97 12/09/16 12:56 95 16 112/60 98 12/09/16 12:41 97.2 F L 95 16 106/55 97 Intake and Output 12/09/16 12/10/16 12/10/16 22:59 06:59 14:59 Output Total 575 925 Balance -575 -925 Output: Urine 575 925 Other: Voiding Method Indwelling Catheter # Voids 0 0 1 - Exam Lungs: bilateral: normal Chest: Normal S1, Normal S2 Extremities: Present: normal Abdomen: Present: normal appearance, soft. Absent: distention, tenderness Incision: Present: normal, dry, intact Uterus: Present: normal, firm - Labs Labs: Abnormal Lab Results - Last 24 Hours (Table) 12/10/16 Range/Units 05:26 RBC 3.71 L (3.80-5.40) m/uL Hgb 9.8 L (11.4-16.0) gm/dL Hct 31.7 L (34.0-46.0) % MCHC 30.9 L (31.0-37.0) g/dL Assessment and Plan (1) Previous section Current Visit: Yes Status: Resolved Code(s): Z98.891 - HISTORY OF UTERINE SCAR FROM PREVIOUS SURGERY SNOMED Code(s): 360371734 (2) Status post repeat low transverse section Narrative/Plan: 1. increase ambulation 2. pain control Current Visit: Yes Status: Acute Code(s): Z98.891 - HISTORY OF UTERINE SCAR FROM PREVIOUS SURGERY SNOMED Code(s): 594196852
[2016-12-10] MEDS: IBUPROFEN 600 MG TAB PO PRN (20:01)
[2016-12-11] MEDS: IBUPROFEN 600 MG TAB PO PRN ×3 (07:53→19:45)
[2016-12-11] MEDS: SIMETHICONE 80 MG CHEWABLE PO PRN ×2 (07:53→19:46)
[2016-12-11] MEDS: SENNOSIDES-DOCUSATE SODIUM 1 EACH TAB PO SCH ×2 (07:59→19:46)
--- NOTE | 2016-12-11 10:48 | P.PNOBGPC ---
Subjective - Subjective Principal diagnosis: Status post section postoperative day #2 Interval history: Patient is doing okay. She is passing flatus and bowel movement. Pain is fairly well controlled with oral pain medications. Lochia is decreasing. Patient reports: Reports appetite normal, Reports voiding normally, Reports pain well controlled, Reports ambulating normally [place]: other (In special care nursery) Objective - Vital Signs Latest vital signs: Vital Signs Temp Pulse Resp BP Pulse Ox 12/11/16 07:58 98.3 F 92 18 127/68 99 12/11/16 00:00 98.5 F 90 16 112/65 12/10/16 16:00 98.8 F 92 17 128/85 99 12/10/16 12:00 98.0 F 87 17 134/79 98 Intake and Output 12/10/16 12/11/16 12/11/16 22:59 06:59 14:59 Other: # Voids 2 2 # Bowel Movements 1 - Exam Extremities: Present: normal, edema (Trace). Absent: tenderness Abdomen: Present: normal appearance, soft (Positive bowel sounds 4). Absent: distention, tenderness Incision: Present: normal, dry, intact. Absent: erythematous Uterus: Present: normal, firm. Absent: tenderness Assessment and Plan (1) delivery delivered Narrative/Plan: Impression is status post delivery postoperative day #2. Plan is to continue with postoperative care. Patient plans to stay as long as she can due to her baby in the nursery. Current Visit: No Status: Acute Code(s): O82 - ENCOUNTER FOR DELIVERY WITHOUT INDICATION SNOMED Code(s): 261172121
--- NOTE | 2016-12-11 11:10 | P.PN ---
Progress Note - Text Date:12/10 Time:1809 Patient is status post . Patient seen this morning with VAS score of 2.no c/o of pruritus, no c/o nausea/vomiting, comfortable and doing well.
[2016-12-12] MEDS: IBUPROFEN 600 MG TAB PO PRN ×3 (07:40→23:31)
[2016-12-12] MEDS: SENNOSIDES-DOCUSATE SODIUM 1 EACH TAB PO SCH ×2 (07:40→21:12)
--- NOTE | 2016-12-12 07:40 | P.PNOBGPC ---
Subjective - Subjective Principal diagnosis: S/P RLTCS POD #3 Interval history: Patient seen and examined. Doing well. Denies N/V, F/C, CP, SOB, calf pain. Patient reports: Reports appetite normal, Reports voiding normally, Reports pain well controlled, Reports ambulating normally Objective - Vital Signs Latest vital signs: Vital Signs Temp Pulse Resp BP Pulse Ox 12/12/16 00:00 98.0 F 72 16 116/70 12/11/16 16:00 98.2 F 79 16 126/71 12/11/16 07:58 98.3 F 92 18 127/68 99 Intake and Output 12/11/16 12/12/16 12/12/16 22:59 06:59 14:59 Other: Voiding Method Indwelling Catheter - Exam Lungs: bilateral: normal Chest: Normal S1, Normal S2 Extremities: Present: normal Abdomen: Present: normal appearance, soft. Absent: distention, tenderness Incision: Present: normal, dry, intact Uterus: Present: normal, firm Assessment and Plan (1) Previous section Current Visit: Yes Status: Resolved Code(s): Z98.891 - HISTORY OF UTERINE SCAR FROM PREVIOUS SURGERY SNOMED Code(s): 333496911 (2) Status post repeat low transverse section Narrative/Plan: 1. cont po care Current Visit: Yes Status: Acute Code(s): Z98.891 - HISTORY OF UTERINE SCAR FROM PREVIOUS SURGERY SNOMED Code(s): 293049082
[2016-12-13 00:25] VITALS: RESP 16
--- NOTE | 2016-12-13 07:22 | P.DS ---
Providers Date of admission: 12/09/16 09:39 Expected date of discharge: 12/13/16 Attending physician: Kiara Oliva Primary care physician: Stated None - Discharge Diagnosis(es) (1) Previous section Current Visit: Yes Status: Resolved (2) Status post repeat low transverse section Current Visit: Yes Status: Acute Hospital Course: PAtient presented for repeat low transverse . She underwent this procedure without complication. HEr post op course was uncomplicated. She is ambulating and voiding without difficulty. Denies N/V, F/C, CP, SOB, calf pain. She will be discharged home POD #4 in stable condition to follow up with me in 2 weeks. Plan - Discharge Summary New Discharge Prescriptions: New Acetaminophen-Codeine 300-30mg [Tylenol w/codeine #3] 2 each PO Q4HR PRN #30 tab PRN Reason: Moderate To Severe Pain Ibuprofen [Motrin] 600 mg PO Q6HR PRN #30 tab PRN Reason: Mild Pain Or Fever >= 100.5 No Action Rie-Sknb-Hweaa Acid [-U Capsule (formulary)] 1 cap PO DAILY Discharge Medication List Bfl-Piul-Nrelq Acid [-U Capsule (formulary)] 1 cap PO DAILY [History] Acetaminophen-Codeine 300-30mg [Tylenol w/codeine #3] 2 each PO Q4HR PRN #30 tab 12/12/16 [Rx] Ibuprofen [Motrin] 600 mg PO Q6HR PRN #30 tab 12/12/16 [Rx] Follow up Appointment(s)/Referral(s): Kiara Oliva DO [Doctor of Osteopathic Medicine] - 2 Weeks
[2016-12-13] MEDS: SENNOSIDES-DOCUSATE SODIUM 1 EACH TAB PO SCH (08:33)
[2016-12-13 08:43] VITALS: BP 141/74; PULSE 88; TEMP 98.2
== END 2016-12-13 11:20 | disposition home or self-care (01) | DRG 766 ==
LOC: 4FBP 09:39
PROVIDERS: ADMIT Obstetrics & Gynecology; ATTEND Obstetrics & Gynecology
PROC: 10D00Z1 Extraction of Products of Conception, Low, Open Approach (ICD-10-PCS; principal; 2016-12-09 12:05)
DX: O34.211 Maternal care for low transverse scar from previous cesarean delivery (principal); Z87.442 Personal history of urinary calculi; Z37.0 Single live birth; Z3A.39 39 weeks gestation of pregnancy
CPT/HCPCS: 85025; 86850; 86900; 86901; 88307